=== PATIENT | male | born 1955 | race Caucasian/White ===

== ENCOUNTER 2017-06-13 16:35 | Emergency (ER) | payer OTHER ==
[~2017-06-13] VITALS: Ht 180.3 cm; Wt 86.6 kg
[2017-06-13] MEDS ORDERED: PLEASE ENTER ALLERGIES MC SCH (17:00)
[2017-06-13] MEDS ORDERED: SODIUM CHLORIDE FLUSH 10ML SYR IVF ONE (17:00)
[2017-06-13 17:07] LABS: BASOPHILS # (AUTO) 0.02 x10^3/uL (0-0.1); BASOPHILS % (AUTO) 0 % (0-1); EOSINOPHILS # (AUTO) 0.02 x10^3/uL (0-0.4); EOSINOPHILS % (AUTO) 0 % (1-7); LYMPHOCYTES # (AUTO) 1.21 x10^3/uL (1-3.4); LYMPHOCYTES % (AUTO) 13 % (22-44); MD NO; MEAN CORPUSCULAR HEMOGLOBIN 31.1 pg (27.5-34.5); MEAN CORPUSCULAR HGB CONC 33.6 g/dL (33.2-36.2); MEAN CORPUSCULAR VOLUME 92.7 fL (81-97); MEAN PLATELET VOLUME 8.8 fL (7.4-10.4); MONOCYTES # (AUTO) 0.43 x10^3/uL (0.2-0.8); MONOCYTES % (AUTO) 5 % (2-9); NEUTROPHILS # (AUTO) 7.76 x10^3/uL (1.8-6.8); NEUTROPHILS % (AUTO) 82 % (42-75); PLATELET COUNT 216 x10^3/uL (130-400); RED BLOOD COUNT 4.85 x10^6/uL (4.38-5.82); RED CELL DISTRIBUTION WIDTH 13.7 % (9.4-14.8)
[2017-06-13 17:20] LABS: ALANINE AMINOTRANSFERASE 80 U/L (12-78); ALBUMIN 4.4 g/dL (3.4-5.0); ANION GAP 10 mmol/L (5-15); CALCIUM 10.4 mg/dL (8.5-10.1); CHLORIDE 107 mmol/L (98-107)
[2017-06-13 17:23] LABS: ALKALINE PHOSPHATASE 57 U/L (45-117); BILIRUBIN,TOTAL 0.5 mg/dL (0.2-1.0); CREATININE 1.77 mg/dL (0.7-1.3); TOTAL PROTEIN 8.1 g/dL (6.4-8.2); TROPONIN I < 0.015 ng/mL (0.000-0.045)
[2017-06-13] MEDS ORDERED: TAMSULOSIN 0.4 MG CAP.ER.24H ONE (17:28)
[2017-06-13] MEDS ORDERED: MORPHINE SULFATE 4 MG/ML, 1ML ONE ×2 (17:28→18:23)
[2017-06-13] MEDS ORDERED: MORPHINE SULFATE 4 MG/ML, 1ML IVPush ONE ×2 (17:30→18:30)
[2017-06-13] MEDS ORDERED: TAMSULOSIN 0.4 MG CAP.ER.24H PO ONE (18:00)
[2017-06-13] MEDS ORDERED: SODIUM CHLORIDE 0.9%, 500ML IVBOLUS ONE ×2 (18:00→19:30)
[2017-06-13 19:07] LABS: MICROSCOPIC INDICATED
[2017-06-13 19:10] LABS: CULTURE INDICATED? YES
[2017-06-13] MEDS ORDERED: KETOROLAC 30 MG/1 ML ONE (19:22)
[2017-06-13] MEDS ORDERED: KETOROLAC 30 MG/1 ML IVPush ONE (19:30)
[2017-06-13] MEDS ORDERED: FENTANYL PF 100 MCG/2ML IVPush ONE ×2 (20:30→21:30)
[2017-06-13] MEDS ORDERED: FENTANYL PF 100 MCG/2ML ONE ×2 (20:58→21:25)
[2017-06-13 22:30] VITALS: BP 146/68
== END 2017-06-13 22:31 | disposition home or self-care (01) ==
LOC: ED 18:18
DX: N17.9 Acute kidney failure, unspecified (principal); N13.2 Hydronephrosis with renal and ureteral calculous obstruction; I10 Essential (primary) hypertension
CPT/HCPCS: 36415; 71045; 74176; 80053; 81001; 84484; 85025; 87086; 93005; 96361; 96374; 96375; 96376; 99285; J1885; J3010; J7040

== ENCOUNTER → 2017-08-29 | Outpatient (CLI) | payer OTHER ==
[~2017-08-29] MED LIST: OMNIPAQUE 350 MG/ML, 150 ML BOTTLE ONE
== END | disposition home or self-care (01) ==
LOC: RAD 14:59
PROVIDERS: ATTEND Urology
DX: N13.30 Unspecified hydronephrosis (principal); N20.1 Calculus of ureter; N28.1 Cyst of kidney, acquired; I70.0 Atherosclerosis of aorta; K76.0 Fatty (change of) liver, not elsewhere classified; D49.512 Neoplasm of unspecified behavior of left kidney
CPT/HCPCS: 74178; Q9967

== ENCOUNTER 2017-09-02 12:32 | Day surgery (SDC) | payer OTHER ==
[~2017-09-02] VITALS: Ht 180.3 cm; Wt 87.3 kg
[2017-09-02] MEDS ORDERED: LACTATED RINGERS 1,000 ML IV SCH (12:44)
[2017-09-02 13:31] VITALS: BP 141/92
[2017-09-02] MEDS ORDERED: AMLO2.5T PO (13:41)
[2017-09-02] MEDS ORDERED: LISI-167 PO (13:41)
[2017-09-02] MEDS ORDERED: METO-93 PO (13:41)
[2017-09-02] MEDS ORDERED: GABA300C10 PO (13:41)
[2017-09-02] MEDS ORDERED: HYDR12.58 PO (13:41)
[2017-09-02] MEDS ORDERED: NITR0.4T28 SL (13:41)
[2017-09-02] MEDS ORDERED: PRAS10TA4 PO (13:41)
[2017-09-02] MEDS ORDERED: TAMS0.4C2 PO (13:41)
[2017-09-02] MEDS ORDERED: HYDR2TAB40 PO (13:41)
[2017-09-02 14:01] LABS: ALANINE AMINOTRANSFERASE 32 U/L (12-78); ALBUMIN 3.5 g/dL (3.4-5.0); ANION GAP 9 mmol/L (5-15); CALCIUM 9.1 mg/dL (8.5-10.1); CHLORIDE 111 mmol/L (98-107)
[2017-09-02 14:04] LABS: ALKALINE PHOSPHATASE 53 U/L (45-117); BILIRUBIN,TOTAL 0.6 mg/dL (0.2-1.0); CREATININE 1.93 mg/dL (0.7-1.3); INTERNATIONAL NORMALIZED RATIO 0.91 (0.93-1.1); PROTHROMBIN TIME 9.5 Seconds (9.6-11.5)
[2017-09-02] MEDS ORDERED: FENTANYL PF 250 MCG/5ML ONE (14:47)
[2017-09-02] MEDS ORDERED: MIDAZOLAM 1 MG/ML, 2ML ONE (14:47)
[2017-09-02 14:50] LABS: MICROSCOPIC AUTO
[2017-09-02 14:56] LABS: CULTURE INDICATED? NO
[2017-09-02] MEDS ORDERED: PHENYLEPHRINE 10 MG/ML ONE (15:23)
[2017-09-02] MEDS ORDERED: OMNIPAQUE 350 MG/ML, 50 ML BOTTLE IV ONE (16:04)
[2017-09-02] MEDS ORDERED: CEFAZOLIN 1,000 MG ONE (16:09)
[2017-09-02] MEDS ORDERED: CIPROFLOXACIN/PMX 400MG/200ML 200 ML ONE ×3 (16:09)
[2017-09-02] MEDS ORDERED: PROPOFOL 10 MG/ML, 20ML ONE (16:09)
[2017-09-02] MEDS ORDERED: ONDANSETRON 2MG/ML, 2ML ONE (16:09)
[2017-09-02] MEDS ORDERED: DEXAMETHASONE 4 MG/ML, 1ML ONE (16:09)
[2017-09-02] MEDS ORDERED: FENTANYL PF 100 MCG/2ML IV PRN (16:30)
[2017-09-02] MEDS ORDERED: PROMETHAZINE 25 MG/ML, 1ML IV PRN (16:30)
[2017-09-02] MEDS ORDERED: MORPHINE SULFATE 4 MG/ML, 1ML IVPush PRN (16:30)
[2017-09-02] MEDS ORDERED: OXYcodone 5 MG/5 ML ORAL.SOL UDC PO PRN (16:30)
[2017-09-02] MEDS ORDERED: ONDANSETRON ODT 8 MG PO PRN (16:30)
[2017-09-02] MEDS ORDERED: HYDROmorphone 1 MG/ML, 1ML IV PRN (16:30)
[2017-09-02] MEDS ORDERED: ACETAMINOPHEN 325 MG TABLET PO PRN (16:30)
[2017-09-02] MEDS ORDERED: ACETAMINOPHEN 650 MG/20.3 ML UDC ONE (17:09)
[2017-09-02] MEDS ORDERED: OXYcodone 5 MG/5 ML ORAL.SOL UDC ONE (17:09)
[2017-09-02] MEDS ORDERED: PRASUGREL 10 MG TABLET PO ONE (18:00)
[2017-09-02] MEDS ORDERED: PHENAZOPYRIDINE 100 MG TABLET PO SCH (18:00)
[2017-09-02] MEDS ORDERED: PHENAZOPYRIDINE 200 MG TABLET ONE (18:12)
[2017-09-02] MEDS ORDERED: OMNIPAQUE 350 MG/ML, 50 ML BOTTLE ONE (18:42)
== END 2017-09-02 18:52 | disposition home or self-care (01) ==
LOC: OUT 12:32
PROVIDERS: ATTEND Urology
DX: N20.1 Calculus of ureter (principal); N13.5 Crossing vessel and stricture of ureter without hydronephrosis; I25.2 Old myocardial infarction
CPT/HCPCS: 36415; 52332; 74420; 80053; 81001; 85610; 93005; C1726; C1758; C1769; C2617; J0744; J1100; J2250; J2370; J2405; J2704; J3010; J7120; Q9967; J0690

== ENCOUNTER → 2017-09-16 | Outpatient (CLI) | payer OTHER ==
[~2017-09-16] MED LIST changes: +AMLO2.5T PO; +GABA300C10 PO; +HYDR12.58 PO; +HYDR2TAB40 PO; +LISI-167 PO; +METO-93 PO; +NITR0.4T28 SL; +PHEN100T90 PO; +PRAS10TA4 PO; +TAMS0.4C2 PO
== END | disposition home or self-care (01) ==
LOC: RAD 15:45 → EDSTATUS 16:00
PROVIDERS: ATTEND Urology
DX: D49.512 Neoplasm of unspecified behavior of left kidney (principal); N13.30 Unspecified hydronephrosis; N20.1 Calculus of ureter; N28.1 Cyst of kidney, acquired; N40.0 Benign prostatic hyperplasia without lower urinary tract symptoms; N23 Unspecified renal colic; K57.30 Diverticulosis of large intestine without perforation or abscess without bleeding; K40.20 Bilateral inguinal hernia, without obstruction or gangrene, not specified as recurrent; R31.0 Gross hematuria
CPT/HCPCS: 36415; 74178; 82565; Q9967

== ENCOUNTER 2017-09-17 13:47 | Day surgery (SDC) | payer OTHER ==
[~2017-09-17] VITALS: Ht 180.3 cm; Wt 83.5 kg
[~2017-09-17 13:47] MED LIST changes: -OMNIPAQUE 350 MG/ML, 150 ML BOTTLE ONE; -PHEN100T90 PO
[2017-09-17 14:19] VITALS: BP 123/89
[2017-09-17] MEDS ORDERED: LACTATED RINGERS 1,000 ML IV SCH (14:23)
[2017-09-17] MEDS ORDERED: PHEN100T90 PO (14:26)
[2017-09-17] MEDS ORDERED: LIDOCAINE-MPF 1%, 2ML ONE (14:28)
[2017-09-17] MEDS ORDERED: LIDOCAINE-MPF 1%, 2ML INFIL ONE (14:30)
[2017-09-17] MEDS ORDERED: MIDAZOLAM 1 MG/ML, 2ML ONE (15:11)
[2017-09-17] MEDS ORDERED: FENTANYL PF 100 MCG/2ML ONE (15:11)
[2017-09-17] MEDS ORDERED: PHENYLEPHRINE 10 MG/ML ONE (15:20)
[2017-09-17] MEDS ORDERED: VASOPRESSIN 20 UNIT/ML, 1ML ONE (15:20)
[2017-09-17] MEDS ORDERED: CIPROFLOXACIN/PMX 400MG/200ML 200 ML ONE (15:46)
[2017-09-17] MEDS ORDERED: GLYCOPYRROLATE 0.2MG/1ML, 5ML ONE (16:20)
[2017-09-17] MEDS ORDERED: CEFAZOLIN 1,000 MG ONE (16:20)
[2017-09-17] MEDS ORDERED: ROCURONIUM 10MG/ML,5ML ONE (16:20)
[2017-09-17] MEDS ORDERED: NEOSTIGMINE 1 MG/ML, 10ML ONE (16:20)
[2017-09-17] MEDS ORDERED: PROPOFOL 10 MG/ML, 20ML ONE (16:20)
[2017-09-17] MEDS ORDERED: DEXAMETHASONE 4 MG/ML, 1ML ONE (16:20)
[2017-09-17] MEDS ORDERED: SUCCINYLCHOLINE 20 MG/ML, 10ML ONE (16:20)
[2017-09-17] MEDS ORDERED: ONDANSETRON 2MG/ML, 2ML ONE (16:20)
[2017-09-17] MEDS ORDERED: ACETAMINOPHEN 650 MG/20.3 ML UDC ONE (16:48)
[2017-09-17] MEDS ORDERED: OXYcodone 5 MG/5 ML ORAL.SOL UDC ONE (16:48)
[2017-09-17] MEDS ORDERED: MORPHINE SULFATE 4 MG/ML, 1ML IVPush PRN (17:00)
[2017-09-17] MEDS ORDERED: LABETALOL 5MG/ML, 20ML IV PRN (17:00)
[2017-09-17] MEDS ORDERED: ACETAMINOPHEN 325 MG TABLET PO PRN (17:00)
[2017-09-17] MEDS ORDERED: ONDANSETRON ODT 8 MG PO PRN (17:00)
[2017-09-17] MEDS ORDERED: OXYcodone 5 MG/5 ML ORAL.SOL UDC PO PRN (17:00)
[2017-09-17] MEDS ORDERED: ONDANSETRON 2MG/ML, 2ML IV PRN (17:00)
[2017-09-17] MEDS ORDERED: HYDROmorphone 1 MG/ML, 1ML IV PRN (17:00)
[2017-09-17] MEDS ORDERED: FENTANYL PF 100 MCG/2ML IV PRN (17:00)
== END 2017-09-17 18:56 | disposition home or self-care (01) ==
LOC: OR 13:47
PROVIDERS: ATTEND Urology
DX: N20.1 Calculus of ureter (principal); N13.5 Crossing vessel and stricture of ureter without hydronephrosis; I10 Essential (primary) hypertension; I25.2 Old myocardial infarction; Z98.890 Other specified postprocedural states; Z72.89 Other problems related to lifestyle
CPT/HCPCS: 52353; 74018; 76001; 82360; 88300; C1769; J0330; J0690; J0744; J1100; J2250; J2370; J2405; J2704; J2710; J3010; J3490; J7120

== ENCOUNTER → 2018-02-02 | Outpatient (CLI) | payer OTHER ==
[~2018-02-02] MED LIST changes: -AMLO2.5T PO; +AMLO2.5T3 PO; -HYDR12.58 PO; +HYDROCHLOROTH12.5 MG PO; +PHEN100T90 PO
== END | disposition home or self-care (01) ==
LOC: CVU 10:00
PROVIDERS: ATTEND Family Medicine
DX: L81.9 Disorder of pigmentation, unspecified (principal); I25.2 Old myocardial infarction
CPT/HCPCS: 93931; 93971

== ENCOUNTER 2019-04-29 13:33 | Outpatient (CLI) | payer OTHER ==
[~2019-04-29 13:33] MED LIST changes: -AMLO2.5T3 PO; +AMLO2.5T5 PO
== END 2019-04-29 23:59 | disposition home or self-care (01) ==
LOC: CFH 13:33
PROVIDERS: ATTEND Family Medicine
DX: N28.1 Cyst of kidney, acquired (principal)
CPT/HCPCS: 76700